=== PATIENT | female | born 1965 | race Caucasian/White ===

== ENCOUNTER → 2020-07-14 | Outpatient (CLI) | payer BC ==
[~2020-07-14] MED LIST: APAP650 PO; CELEXA 10 MG TA10 M1 PO; LANTUS100 UNIT/M SUBQ; LISINOPRIL2.5 M1 PO; METFORMIN HCL500 MG PO; PEPCID20 MG PO
== END ==
LOC: M.ULTRA 07:51
PROVIDERS: ATTEND Family Medicine
DX: K75.81 Nonalcoholic steatohepatitis (NASH) (principal)